=== PATIENT | female | born 1990 | race Native Hawaiian/Other Pacific Islander ===

== ENCOUNTER 2018-02-01 16:32 | Inpatient (IN) | payer OTHER ==
[2018-02-01] MEDS ORDERED: Sodium Chloride 0.9% 1,000 ML IV ONE (16:58)
[2018-02-01] MEDS ORDERED: Sodium Chloride 0.9% 1,000 ML ONE (17:06)
[2018-02-01 17:17] LABS: HCG,QUALITATIVE URINE POSITIVE (NEGATIVE)
--- NOTE | 2018-02-01 17:23 | C.PDOC ---
History Of Present Illness <Tono Mcdaniel - Last Filed: 02/01/18 20:35> <Alexsandra Weinberg - Last Filed: 02/05/18 14:35> 27 y/o female presents to ED with complaints of heavy bleeding with x1 episode of syncope 4 days ago and fever since last night. Patient states she had a termination 5 days ago and developed heavy bleeding that now has slowed down. Patient was sent by Dr. Schmidt for further evaluation. No other complaints at this time. (Alexsandra Weinberg) <Tono Mcdaniel - Last Filed: 02/01/18 20:35> History Per: Patient History/Exam Limitations: no limitations Onset/Duration Of Symptoms: Days Current Symptoms Are (Timing): Still Present <Alexsandra Weinberg - Last Filed: 02/05/18 14:35> Time Seen by Provider: 02/01/18 16:49 Chief Complaint (Nursing): Female Genitourinary Past Medical History Reviewed: Historical Data, Nursing Documentation, Vital Signs - Medical History PMH: No Chronic Diseases Surgical History: No Surg Hx Family History: States: No Known Family Hx - Social History Hx Alcohol Use: No Hx Substance Use: No <Alexsandra Weinberg - Last Filed: 02/05/18 14:35> Vital Signs: Last Vital Signs Temp 98 F 02/05/18 08:00 Pulse 80 02/05/18 08:00 Resp 20 02/05/18 08:00 BP 118/80 02/05/18 08:00 Pulse Ox 95 02/05/18 08:00 Review Of Systems Constitutional: Positive for: Fever. Negative for: Chills Gastrointestinal: Negative for: Nausea, Vomiting Genitourinary: Positive for: Vaginal Bleeding. Negative for: Dysuria Skin: Negative for: Rash <Alexsandra Weinberg - Last Filed: 02/05/18 14:35> Physical Exam - Physical Exam Appears: Non-toxic, No Acute Distress Skin: Warm, Dry, Pale Head: Atraumatic, Normacephalic Eye(s): bilateral: Normal Inspection Oral Mucosa: Moist Neck: Normal ROM, Supple Cardiovascular: Rhythm Regular Respiratory: Normal Breath Sounds, No Rales, No Rhonchi, No Wheezing Gastrointestinal/Abdominal: Soft, Tenderness (low abdominal), No Guarding, No Rebound Back: No CVA Tenderness Extremity: Normal ROM, Capillary Refill (<2 seconds) Neurological/Psych: Oriented x3, Normal Speech, Normal Cognition <Alexsandra Weinberg - Last Filed: 02/05/18 14:35> ED Course And Treatment - Laboratory Results Result Diagrams: 02/01/18 19:17 02/01/18 17:24 <JonasTono - Last Filed: 02/01/18 20:35> - Laboratory Results Result Diagrams: 02/04/18 08:45 02/03/18 06:41 O2 Sat by Pulse Oximetry: 100 (RA) Pulse Ox Interpretation: Normal <Alexsandra Weinberg - Last Filed: 02/05/18 14:35> Medical Decision Making <JonasAsh - Last Filed: 02/01/18 20:35> <Alexsandra Weinberg - Last Filed: 02/05/18 14:35> Medical Decision Making: Transvaginal US, Blood work ordered. IV fluids, Tylenol administered Progress; Dr Baldwin ob warehouse operations associate eval patient at bedside [address] Schmidt; she is requesting transfusion 2 units prbc, and hem/onc consult. discussed with Dr Padilla, she will come see patient. pt currently in ultrasound, will get consent for transusion on return to ed. ( Alexsandra Weinberg) Disposition <Tono Mcdaniel - Last Filed: 02/01/18 20:35> - Disposition Disposition Time: 20:00 <Alexsandra Weinberg - Last Filed: 02/05/18 14:35> - Disposition Disposition: HOSPITALIZED Condition: GOOD - Clinical Impression Clinical Impression: Anemia, Thrombocytopenia <JonasTono - Last Filed: 02/01/18 20:35> - PA / SENIOR TRIAL ATTORNEY / Resident Statement MD/DO has reviewed & agrees with the documentation as recorded. - Scribe Statement The provider has reviewed the documentation as recorded by the Scribe <Alexsandra Weinberg - Last Filed: 02/05/18 14:35> - Scribe Statement Radhika Liao All medical record entries made by the Scribe were at my direction and personally dictated by me. I have reviewed the chart and agree that the record accurately reflects my personal performance of the history, physical exam, medical decision making, and the department course for this patient. I have also personally directed, reviewed, and agree with the discharge instructions and disposition. (Alexsandra Weinberg) Addendum <Tono Mcdaniel - Last Filed: 02/01/18 20:35> <Alexsandra Weinberg - Last Filed: 02/05/18 14:35> Addendum: 02/01/18 20:21 Abnormal US results were discussed with [facility], suspicious for retained products of conception. Case discussed with Dr. Schmidt and Dr. Baldwin, who are both aware of ultrasound findings. (Tono Mcdaniel)
[2018-02-01 17:26] LABS: SQUAMOUS EPITHIAL 6 /hpf (0-5); URINE BILIRUBIN NEGATIVE (NEGATIVE); URINE BLOOD 3+ (NEGATIVE); URINE CLARITY Hazy (Clear); URINE COLOR Red (YELLOW); URINE GLUCOSE (UA) NORMAL (Normal); URINE LEUKOCYTE ESTERASE 2+ Leu/uL (Negative); URINE PROTEIN 2+ mg/dL (NEGATIVE); URINE UROBILINOGEN NORMAL mg/dL (0.2-1.0)
[2018-02-01] MEDS ORDERED: Piperacillin/Tazobact 3.375 gm 100 ML IVPB STA (17:28)
[2018-02-01] MEDS ORDERED: Piperacillin/Tazobact 3.375 gm 100 ML IVPB ONE (17:38)
[2018-02-01 17:42] LABS: ALB/GLOB RATIO 1.1 (1.0-2.1); ALBUMIN 3.7 g/dL (3.5-5.0); ALT/SGPT 15 U/L (9-52); AST/SGOT 20 U/L (14-36); BLOOD UREA NITROGEN 3 mg/dL (7-17); CALCIUM 8.4 mg/dl (8.6-10.4); GFR AFRICAN-AMERICAN > 60; GFR NON-AFRICAN AMERICAN > 60; INR 1.4; PROTHROMBIN TIME 16.1 SECONDS (9.7-12.2)
[2018-02-01 17:44] LABS: BASO % 0.5 % (0.0-2.0); EOS % 0.1 % (0.0-4.0); HEMOGLOBIN 7.2 g/dL (11.0-16.0); LYMPH % 9.1 % (20.0-40.0); MEAN CORPUSCULAR HEMOGLOBIN 20.2 pg (27.0-31.0); MEAN CORPUSCULAR HGB CONC 31.6 g/dL (33.0-37.0); MONO % 8.7 % (0.0-10.0); NEUT % 81.6 % (50.0-75.0); NRBC % 0.2 % (0.0-2.0); RBC 3.57 Mil/uL (3.80-5.20); RED CELL DISTRIBUTION WIDTH 16.6 % (11.5-14.5)
[2018-02-01 18:33] LABS: WHITE BLOOD COUNT 11.3 K/uL (4.8-10.8)
[2018-02-01 18:34] LABS: PLATELET COUNT 27 K/uL (130-400)
[2018-02-01 18:35] LABS: BASO # 0.1 K/uL (0.0-0.2); NEUT # 9.2 K/uL (1.8-7.0)
[2018-02-01 18:41] LABS: LYMPHOCYTE 9 % (20-40); MONOCYTE 5 % (0-10); NEUTROPHIL 86 % (50-75); TOTAL CELLS COUNTED 100
[2018-02-01 18:44] LABS: ANISOCYTOSIS SLIGHT; MICROCYTOSIS MODERATE; POIKILOCYTOSIS SLIGHT
[2018-02-01 18:45] LABS: HYPOCHROMIC SLIGHT
[2018-02-01 18:46] LABS: OVALOCYTES SLIGHT; PLATELET CLUMPS PRESENT
--- NOTE | 2018-02-01 19:07 | CP.PCM.HP ---
History of Present Illness - History of Present Illness History of Present Illness: This is a private patient of Dr. Schmidt 27 y.o. now , s/p medical . 01/27/18 took 1 pill {misoprostol 200 micrograms} in doctor's office. Heavy vaginal bleeding with passage of clots began Sunday 01/28 - onset 2000 hours through midnight. Had one event of loss of consciousness - was present; caught her - no trauma to head or any other body part. Patient took 4 more pills (misoprostol 800 micrograms x 1 dose) Wednesday morning. Vaginal bleeding was lean manufacturing specialist thereafter. Patient states felt well over the weekend; engaged in normal activities. Approximately 1700 hours, 01/31/18, noted to feel more tired/ weak; hands were a bit numb. Reports one episode of vomiting last night; took anti-emetic this morning. Denies fever , chills; not sexually active since process commenced , 01/27/18. Today, saw priv CAKE PRESS OPERATOR - referred to [facility], for evaluation due to pallor, and h/o syncope. In. E.D. temp 102.7 Fahrenheit. At time of my interaction, patient reported feeling better (IVFs infusing). BP 117/56; pulse 78 bpm; O2 sat = 100% on RA. P Ob: x 1, 02/15/2013, female, 2.685 Kg, Janay, no complications P CAKE PRESS OPERATOR: 13 x 30-35 x 3-5 PMH: denies PSH: denies NKDA Meds: none, except recently as described above. Soc Hx: denies tobacco, illicit drug or EtOH use. 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 Father alive 52 y.o. - both, no med issues Present on Admission - Present on Admission Any Indicators Present on Admission: No Review of Systems - Review of Systems All systems: reviewed and no additional remarkable complaints except - Constitutional Constitutional: Weakness, Other (loss of consciousness) - Gastrointestinal Gastrointestinal: Vomiting - Reproductive: Female Reproductive:Female: As Per HPI - Musculoskeletal Musculoskeletal: Numbness Past Patient History - Infectious Disease Hx of Infectious Diseases: None - Tetanus Immunizations Tetanus Immunization: Unknown - Past Medical History & Family History Past Medical History?: No Past Family History: Reviewed and not pertinent - Past Social History Smoking Status: Never Smoked Drugs: Denies Home Situation {Lives}: With Family - CARDIAC Hx Cardiac Disorders: No - PULMONARY Hx Respiratory Disorders: No - NEUROLOGICAL Hx Neurological Disorder: No - HEENT Hx HEENT Problems: No - RENAL Hx Chronic Kidney Disease: No - ENDOCRINE/METABOLIC Hx Endocrine Disorders: No - HEMATOLOGICAL/ONCOLOGICAL Hx Blood Disorders: No - INTEGUMENTARY Hx Dermatological Problems: No - MUSCULOSKELETAL/RHEUMATOLOGICAL Hx Musculoskeletal Disorders: No - GASTROINTESTINAL Hx Gastrointestinal Disorders: No - GENITOURINARY/GYNECOLOGICAL Hx Genitourinary Disorders: No LMP:: 12/06/17 : 2 Para: 1 Termination of : 1 - PSYCHIATRIC Hx Psychophysiologic Disorder: No Hx Substance Use: No - SURGICAL HISTORY Hx Surgeries: No - ANESTHESIA Hx Anesthesia: No Meds Allergies/Adverse Reactions: Allergies Allergy/AdvReac Type Severity Reaction Status Date / Time No Known Allergies Allergy Verified 02/01/18 16:45 Physical Exam - Constitutional Appears: Well, No Acute Distress - Head Exam Head Exam: ATRAUMATIC (Pale sclerae), NORMAL INSPECTION, NORMOCEPHALIC - ENT Exam ENT Exam: Mucous Membranes Moist - Neck Exam Neck exam: Positive for: Full Rom - Respiratory Exam Respiratory Exam: NORMAL BREATHING PATTERN - Cardiovascular Exam Cardiovascular Exam: Tachycardia, +S1, +S2 - GI/Abdominal Exam GI & Abdominal Exam: Normal Bowel Sounds (non tender), Soft - Exam Bimanual exam: NORMAL BIMANUAL EXAM (deferred - patient had been examined by PMD in office just prior to coming to E.D. - essentially unremarkable bimanual exam) - Extremities Exam Extremities exam: Positive for: full ROM, normal inspection, pedal pulses present - Back Exam Back exam: NORMAL INSPECTION - Neurological Exam Neurological exam: Alert, Oriented x3 - Psychiatric Exam Psychiatric exam: Normal Affect, Normal Mood - Skin Skin Exam: Dry, Intact, Pallor, Warm Results - Vital Signs Recent Vital Signs: Last Vital Signs Temp 102.7 F H 02/01/18 16:41 Pulse 127 H 02/01/18 16:41 Resp 22 02/01/18 16:41 BP 113/75 02/01/18 16:41 Pulse Ox 100 02/01/18 17:35 - Labs Result Diagrams: 02/01/18 17:24 02/01/18 17:24 Labs: Laboratory Results - last 24 hr 02/01/18 02/01/18 02/01/18 17:10 17:24 17:24 RBC 3.57 L Hgb 7.2 L Hct 22.8 L MCV 64.0 L MCH 20.2 L MCHC 31.6 L RDW 16.6 H Plt Count 27 L* MPV 11.0 Neut % (Auto) 81.6 H Lymph % (Auto) 9.1 L [place] % (Auto) 8.7 Eos % (Auto) 0.1 Baso % (Auto) 0.5 PT 16.1 H INR 1.4 APTT 29 Sodium Potassium Chloride Carbon Dioxide Anion Gap BUN Creatinine Est GFR ( Amer) Est GFR (Non-Af Amer) Random Glucose Calcium Total Bilirubin AST ALT Alkaline Phosphatase Total Protein Albumin Globulin Albumin/Globulin Ratio Urine Color Red Urine Clarity Hazy Urine pH 7.0 Ur Specific [place] 1.015 Urine Protein 2+ H Urine Glucose (UA) Normal Urine Ketones Negative Urine Blood 3+ H Urine Nitrate Negative Urine Bilirubin Negative Urine Urobilinogen Normal Ur Leukocyte Esterase 2+ H Urine WBC (Auto) 34 H Urine RBC (Auto) 4259 H Ur Squamous Epith Cells 6 H Urine HCG, Qual Positive 02/01/18 17:24 RBC Hgb Hct MCV MCH MCHC RDW Plt Count MPV Neut % (Auto) Lymph % (Auto) [place] % (Auto) Eos % (Auto) Baso % (Auto) PT INR APTT Sodium 131 L Potassium 3.2 L Chloride 98 Carbon Dioxide 17 L Anion Gap 18 BUN 3 L Creatinine 0.7 Est GFR ( Amer) > 60 Est GFR (Non-Af Amer) > 60 Random Glucose 123 H Calcium 8.4 L Total Bilirubin 1.1 AST 20 ALT 15 Alkaline Phosphatase 49 Total Protein 7.0 Albumin 3.7 Globulin 3.3 Albumin/Globulin Ratio 1.1 Urine Color Urine Clarity Urine pH Ur Specific [place] Urine Protein Urine Glucose (UA) Urine Ketones Urine Blood Urine Nitrate Urine Bilirubin Urine Urobilinogen Ur Leukocyte Esterase Urine WBC (Auto) Urine RBC (Auto) Ur Squamous Epith Cells Urine HCG, Qual Assessment & Plan - Assessment and Plan (Free Text) Assessment: CBC noted for H/H 7.2/22.8; platelets 27. Also, sodium 131, potassium 3.2. 27 y.o. , S/P medical - acute blood loss and symptomatic anemia. Incidental finding of thrombocytopenia. Mild hyponatremia and hypokalemia. All results to date discussed with Dr. Schmidt - patient to be admitted for blood transfusion, initiation of hematology evaluation for thrombocytopenia, antibiotic therapy for post abortal fever, and observation. This was discussed with patient and , who has been present during the entire encounter. Patient is hemodynamically stable. Plan: 1) Admit to [facility] 2) NPO 3) Hematology consult - called 4) manual count re: platelets 5) Bloodwork for anemia evaluation, prior to transfusion 6) Transfuse 2 units PRBCs 7) Zosyn 8) IVFs: NS with 20 mEq/L KCl 9) Blood and urine cultures - sent 10) Transvaginal ultrasound - Dr. Schmidt is aware - Date & Time Date: 02/01/18 Time: 18:30
[2018-02-01 19:35] LABS: IRON < 10 ug/dL (37-170)
[2018-02-01 19:44] LABS: TOTAL IRON BINDING CAPACITY 353 ug/dL (250-450)
[2018-02-01 19:45] LABS: % IRON SATURATION 2.8 (20-55)
[2018-02-01 20:10] LABS: FERRITIN 13.7 ng/mL
--- NOTE | 2018-02-01 20:53 | CP.PCM.CON ---
History of Present Illness - History of Present Illness History of Present Illness: 27 yo woman admitted via the ER with c/o nausea, dizziness, feeling weak, episode of LOC Wednesday. She took misoprostol in her private OBs office on ,followed by bleeding and passage of clots on Wednesday, took the second dose of the pill and had more bleeding with weakness, vomiting, followed by fever and chills. The patient was given an antiemetic, IVF and replacement of electrolytes and is currently feeling better. She is also scheduled to receive PRBC transfusions. PMHx- The patient has a history of one normal labor and delivery 5 years ago, denies any history of easy bruising or bleeding. Past Patient History - Infectious Disease Hx of Infectious Diseases: None - Tetanus Immunizations Tetanus Immunization: Unknown - Past Medical History & Family History Past Medical History?: No Past Family History: Reviewed and not pertinent - Past Social History Smoking Status: Never Smoked Drugs: Denies Home Situation {Lives}: With Family - CARDIAC Hx Cardiac Disorders: No - PULMONARY Hx Respiratory Disorders: No - NEUROLOGICAL Hx Neurological Disorder: No - HEENT Hx HEENT Problems: No - RENAL Hx Chronic Kidney Disease: No - ENDOCRINE/METABOLIC Hx Endocrine Disorders: No - HEMATOLOGICAL/ONCOLOGICAL Hx Blood Disorders: No - INTEGUMENTARY Hx Dermatological Problems: No - MUSCULOSKELETAL/RHEUMATOLOGICAL Hx Musculoskeletal Disorders: No - GASTROINTESTINAL Hx Gastrointestinal Disorders: No - GENITOURINARY/GYNECOLOGICAL Hx Genitourinary Disorders: No LMP:: 12/06/17 : 2 Para: 1 Termination of : 1 - PSYCHIATRIC Hx Psychophysiologic Disorder: No Hx Substance Use: No - SURGICAL HISTORY Hx Surgeries: No - ANESTHESIA Hx Anesthesia: No Meds Allergies/Adverse Reactions: Allergies Allergy/AdvReac Type Severity Reaction Status Date / Time No Known Allergies Allergy Verified 02/01/18 16:45 - Medications Medications: Current Medications Acetaminophen (Tylenol 325mg Tab) 650 mg PO Q6 PRN PRN Reason: Fever >100.4 F Piperacillin Sod/Tazobactam Sod (Zosyn 3.375 Gm Iv Premix) 3.375 gm in 50 mls @ 100 mls/hr IVPB Q6H [facility]ANI PRN Reason: Protocol Potassium Chloride 20 meq/ (Sodium Chloride) 1,010 mls @ 100 mls/hr IV .Q10H6M NANI Ondansetron HCl (Zofran Inj) 4 mg IVP Q8 PRN PRN Reason: Nausea/Vomiting Results - Vital Signs Recent Vital Signs: Last Vital Signs Temp 98.9 F 02/01/18 19:53 Pulse 115 H 02/01/18 19:53 Resp 20 02/01/18 19:53 BP 100/65 02/01/18 19:53 Pulse Ox 100 02/01/18 19:53 - Labs Result Diagrams: 02/01/18 19:17 02/01/18 17:24 Labs: Laboratory Results - last 24 hr 02/01/18 02/01/18 02/01/18 17:10 17:24 17:24 WBC 11.3 H RBC 3.57 L Hgb 7.2 L Hct 22.8 L MCV 64.0 L MCH 20.2 L MCHC 31.6 L RDW 16.6 H Plt Count 27 L* MPV 11.0 Neut % (Auto) 81.6 H Lymph % (Auto) 9.1 L Iron % (Auto) 8.7 Eos % (Auto) 0.1 Baso % (Auto) 0.5 Neut # (Auto) 9.2 H Lymph # (Auto) 1.0 Iron # (Auto) 1.0 H Eos # (Auto) 0.0 Baso # (Auto) 0.1 Neutrophils % (Manual) 86 H Lymphocytes % (Manual) 9 L Monocytes % (Manual) 5 Platelet Estimate TEST NOT PERFORMED Plt Clumps, EDTA Present Hypochromasia (manual) Slight Poikilocytosis (manual Slight Anisocytosis (manual) Slight Microcytosis (manual) Moderate Ovalocytes Slight Retic Count PT 16.1 H INR 1.4 APTT 29 Fibrinogen Sodium Potassium Chloride Carbon Dioxide Anion Gap BUN Creatinine Est GFR ( Amer) Est GFR (Non-Af Amer) Random Glucose Calcium Iron TIBC % Saturation Ferritin Total Bilirubin AST ALT Alkaline Phosphatase Lactate Dehydrogenase Total Protein Albumin Globulin Albumin/Globulin Ratio Vitamin B12 Beta HCG, Quant Urine Color Red Urine Clarity Hazy Urine pH 7.0 Ur Specific [place] 1.015 Urine Protein 2+ H Urine Glucose (UA) Normal Urine Ketones Negative Urine Blood 3+ H Urine Nitrate Negative Urine Bilirubin Negative Urine Urobilinogen Normal Ur Leukocyte Esterase 2+ H Urine WBC (Auto) 34 H Urine RBC (Auto) 4259 H Ur Squamous Epith Cells 6 H Urine HCG, Qual Positive Blood Type Blood Type Confirm Antibody Screen 02/01/18 02/01/18 02/01/18 17:24 17:24 19:17 WBC RBC Hgb Hct MCV MCH MCHC RDW Plt Count MPV Neut % (Auto) Lymph % (Auto) Iron % (Auto) Eos % (Auto) Baso % (Auto) Neut # (Auto) Lymph # (Auto) Iron # (Auto) Eos # (Auto) Baso # (Auto) Neutrophils % (Manual) Lymphocytes % (Manual) Monocytes % (Manual) Platelet Estimate Plt Clumps, EDTA Hypochromasia (manual) Poikilocytosis (manual Anisocytosis (manual) Microcytosis (manual) Ovalocytes Retic Count PT INR APTT Fibrinogen 396 Sodium 131 L Potassium 3.2 L Chloride 98 Carbon Dioxide 17 L Anion Gap 18 BUN 3 L Creatinine 0.7 Est GFR ( Amer) > 60 Est GFR (Non-Af Amer) > 60 Random Glucose 123 H Calcium 8.4 L Iron TIBC % Saturation Ferritin Total Bilirubin 1.1 AST 20 ALT 15 Alkaline Phosphatase 49 Lactate Dehydrogenase Total Protein 7.0 Albumin 3.7 Globulin 3.3 Albumin/Globulin Ratio 1.1 Vitamin B12 Beta HCG, Quant 55956.00 Urine Color Urine Clarity Urine pH Ur Specific [place] Urine Protein Urine Glucose (UA) Urine Ketones Urine Blood Urine Nitrate Urine Bilirubin Urine Urobilinogen Ur Leukocyte Esterase Urine WBC (Auto) Urine RBC (Auto) Ur Squamous Epith Cells Urine HCG, Qual Blood Type O POSITIVE Blood Type Confirm O POSITIVE Antibody Screen Negative 02/01/18 02/01/18 02/01/18 19:17 19:17 19:17 WBC RBC Hgb Hct MCV MCH MCHC RDW Plt Count MPV Neut % (Auto) Lymph % (Auto) Iron % (Auto) Eos % (Auto) Baso % (Auto) Neut # (Auto) Lymph # (Auto) Iron # (Auto) Eos # (Auto) Baso # (Auto) Neutrophils % (Manual) Lymphocytes % (Manual) Monocytes % (Manual) Platelet Estimate Plt Clumps, EDTA Hypochromasia (manual) Poikilocytosis (manual Anisocytosis (manual) Microcytosis (manual) Ovalocytes Retic Count 2.1 H PT INR APTT Fibrinogen Sodium Potassium Chloride Carbon Dioxide Anion Gap BUN Creatinine Est GFR ( Amer) Est GFR (Non-Af Amer) Random Glucose Calcium Iron < 10 L TIBC 353 % Saturation 2.8 L Ferritin 13.7 Total Bilirubin AST ALT Alkaline Phosphatase Lactate Dehydrogenase 369 Total Protein Albumin Globulin Albumin/Globulin Ratio Vitamin B12 213 L Beta HCG, Quant Urine Color Urine Clarity Urine pH Ur Specific [place] Urine Protein Urine Glucose (UA) Urine Ketones Urine Blood Urine Nitrate Urine Bilirubin Urine Urobilinogen Ur Leukocyte Esterase Urine WBC (Auto) Urine RBC (Auto) Ur Squamous Epith Cells Urine HCG, Qual Blood Type Blood Type Confirm Antibody Screen 02/01/18 19:17 WBC RBC Hgb Hct MCV MCH MCHC RDW Plt Count 138 D MPV Neut % (Auto) Lymph % (Auto) Iron % (Auto) Eos % (Auto) Baso % (Auto) Neut # (Auto) Lymph # (Auto) Iron # (Auto) Eos # (Auto) Baso # (Auto) Neutrophils % (Manual) Lymphocytes % (Manual) Monocytes % (Manual) Platelet Estimate Plt Clumps, EDTA Hypochromasia (manual) Poikilocytosis (manual Anisocytosis (manual) Microcytosis (manual) Ovalocytes Retic Count PT INR APTT Fibrinogen Sodium Potassium Chloride Carbon Dioxide Anion Gap BUN Creatinine Est GFR ( Amer) Est GFR (Non-Af Amer) Random Glucose Calcium Iron TIBC % Saturation Ferritin Total Bilirubin AST ALT Alkaline Phosphatase Lactate Dehydrogenase Total Protein Albumin Globulin Albumin/Globulin Ratio Vitamin B12 Beta HCG, Quant Urine Color Urine Clarity Urine pH Ur Specific [place] Urine Protein Urine Glucose (UA) Urine Ketones Urine Blood Urine Nitrate Urine Bilirubin Urine Urobilinogen Ur Leukocyte Esterase Urine WBC (Auto) Urine RBC (Auto) Ur Squamous Epith Cells Urine HCG, Qual Blood Type Blood Type Confirm Antibody Screen Assessment & Plan (1) Anemia Assessment and Plan: Severe symptomatic Iron deficiency anemia, most likely acute on chronic. Agree with PRBC transfusion, no evidence of DIC/TTP. Have ordered iron studies and B12 l;evels. Above discussed with patient and , will start PO ferrous gluconate, next week and follow up for CBC check as outpatient. Thrombocytopenia, no evidence of DIC/TTP, evidence of platelet clumping on peripheral smear, no intervention at this time Status: Acute
[2018-02-01] MEDS: Piperacill/Tazo 3.375gm in Dex 3.375 GM/50 ML BAG IVPB SCH (22:00)
[2018-02-02 01:44] LABS: SQUAMOUS EPITHIAL 1 /hpf (0-5); URINE BACTERIA RARE (<OCC); URINE BILIRUBIN NEGATIVE (NEGATIVE); URINE BLOOD 3+ (NEGATIVE); URINE CLARITY Hazy (Clear); URINE COLOR Red (YELLOW); URINE GLUCOSE (UA) NORMAL (Normal); URINE LEUKOCYTE ESTERASE 3+ Leu/uL (Negative); URINE PROTEIN 1+ mg/dL (NEGATIVE); URINE UROBILINOGEN NORMAL mg/dL (0.2-1.0)
[2018-02-02] MEDS: Piperacill/Tazo 3.375gm in Dex 3.375 GM/50 ML BAG IVPB SCH ×4 (03:11→21:33)
[2018-02-02 06:51] LABS: BASO % 0.3 % (0.0-2.0); LYMPH # 0.5 K/uL (1.0-4.3); LYMPH % 7.6 % (20.0-40.0); MEAN CELL VOLUME 64.5 fL (81.0-99.0); MEAN CORPUSCULAR HGB CONC 32.6 g/dL (33.0-37.0); MEAN PLATELET VOLUME 15.8 fL (7.2-11.7); MONO # 0.5 K/uL (0.0-0.8); MONO % 8.2 % (0.0-10.0); NEUT # 5.1 K/uL (1.8-7.0); NEUT % 83.9 % (50.0-75.0); NRBC % 0.1 % (0.0-2.0); PLATELET COUNT 102 K/uL (130-400); RED CELL DISTRIBUTION WIDTH 17.3 % (11.5-14.5); WHITE BLOOD COUNT 6.1 K/uL (4.8-10.8)
[2018-02-02 06:58] LABS: HEMOGLOBIN 6.3 g/dL (11.0-16.0)
[2018-02-02 07:25] LABS: ALB/GLOB RATIO 0.9 (1.0-2.1); ALBUMIN 2.5 g/dL (3.5-5.0); ALT/SGPT 22 U/L (9-52); AST/SGOT 23 U/L (14-36); BLOOD UREA NITROGEN 3 mg/dL (7-17); CALCIUM 7.3 mg/dl (8.6-10.4); GFR AFRICAN-AMERICAN > 60; GFR NON-AFRICAN AMERICAN > 60
--- NOTE | 2018-02-02 08:04 | US ---
HISTORY: s/p top, heavy bleeding and fever COMPARISON: None available. TECHNIQUE: Grayscale, color Doppler and spectral evaluation the pelvis performed transabdominally and transvaginally FINDINGS: UTERUS: Measures 14.6 x 6.9 x 10.6 cm. Anteverted. Normal in size and appearance. Large heterogeneously hypoechoic hypervascular mass measuring 11.2 x 6.7 x 8.4 cm, possibly fibroid. ENDOMETRIUM: Measures 15 mm in diameter. Focal hypervascularity at endometrial/myometrial junction. CERVIX: No cervical abnormality identified. RIGHT OVARY: Measures 3.2 x 2.2 x 3.6 cm. No solid mass. Normal flow. LEFT OVARY: Measures 3.5 x 1.8 x 2.8 cm. No solid mass. Normal flow. FREE FLUID: No significant free fluid noted. OTHER FINDINGS: None. IMPRESSION: Prominent endometrium with focal hypervascularity may represent a crit retained products of conception. Large heterogeneously hypoechoic hypervascular mass measuring approximately 11.2 cm is nonspecific, but may represent a fibroid.
[2018-02-02 08:19] LABS: ANISOCYTOSIS SLIGHT; BANDS 5 % (0-2); LYMPHOCYTE 10 % (20-40); MONOCYTE 4 % (0-10); NEUTROPHIL 81 % (50-75); TOTAL CELLS COUNTED 100
[2018-02-02 08:20] LABS: HYPOCHROMIC MODERATE; OVALOCYTES SLIGHT
[2018-02-02 08:21] LABS: POIKILOCYTOSIS SLIGHT; TEARDROP CELLS SLIGHT
[2018-02-02 08:22] LABS: LARGE PLATELETS PRESENT; PLATELET CLUMPS PRESENT; PLATELET ESTIMATE SLIGHTLY DECREASED (NORMAL)
--- NOTE | 2018-02-02 10:07 | CP.PCM.PN ---
Subjective - Date & Time of Evaluation Date of Evaluation: 02/02/18 Time of Evaluation: 10:00 - Subjective Subjective: pt was seen at bed side. feel better.min bleeding, no pain . no gidiness.feels good abd soft,non tender ext no edema,no calf ten blood culture group b strep h/h 6.3 Objective - Vital Signs/Intake and Output Vital Signs (last 24 hours): Temp Pulse Resp BP Pulse Ox 97.6 F 116 H 20 104/69 96 02/02/18 08:33 02/02/18 08:33 02/02/18 08:33 02/02/18 08:33 02/02/18 08:33 Intake and Output: 02/02/18 02/02/18 06:59 18:59 Intake Total 1160 Balance 1160 - Medications Medications: Current Medications Acetaminophen (Tylenol 325mg Tab) 650 mg PO Q4 [facility] Last Admin: 02/02/18 09:38 Dose: 650 mg Piperacillin Sod/Tazobactam Sod (Zosyn 3.375 Gm Iv Premix) 3.375 gm in 50 mls @ 100 mls/hr IVPB Q6H [facility] PRN Reason: Protocol Last Admin: 02/02/18 09:24 Dose: 100 mls/hr Potassium Chloride 20 meq/ (Sodium Chloride) 1,010 mls @ 100 mls/hr IV .Q10H6M [facility] Last Admin: 02/02/18 08:52 Dose: Not Given Ondansetron HCl (Zofran Inj) 4 mg IVP Q8 PRN PRN Reason: Nausea/Vomiting - Labs Labs: 02/02/18 06:40 02/02/18 06:40 PT 16.1 SECONDS (9.7-12.2) H 02/01/18 17:24 INR 1.4 02/01/18 17:24 APTT 29 SECONDS (21-34) 02/01/18 17:24 - GI/Abdominal Exam GI & Abdominal Exam: Soft, Normal Bowel Sounds Assessment and Plan - Assessment and Plan (Free Text) Assessment: 27 yr with acute blood loss anemia/enodemetritis/fever Plan: plan Transfuse 2 unit prbc cont antibiotcs kdure po tylenol cullture senstitivity pending ID consult called cont close observation
--- NOTE | 2018-02-02 11:38 | CP.PCM.CON ---
History of Present Illness - History of Present Illness History of Present Illness: infectious disease consult; Patient seen and chart reviewed Case discussed with , Infectious disease consult dictated; Dictation #[id number] See reports. Past Patient History - Infectious Disease Hx of Infectious Diseases: None - Tetanus Immunizations Tetanus Immunization: Unknown - Past Medical History & Family History Past Medical History?: No Past Family History: Reviewed and not pertinent - Past Social History Smoking Status: Never Smoked - CARDIAC Hx Cardiac Disorders: No - PULMONARY Hx Respiratory Disorders: No - NEUROLOGICAL Hx Neurological Disorder: No - HEENT Hx HEENT Problems: No - RENAL Hx Chronic Kidney Disease: No - ENDOCRINE/METABOLIC Hx Endocrine Disorders: No - HEMATOLOGICAL/ONCOLOGICAL Hx Blood Disorders: No - INTEGUMENTARY Hx Dermatological Problems: No - MUSCULOSKELETAL/RHEUMATOLOGICAL Hx Musculoskeletal Disorders: No - GASTROINTESTINAL Hx Gastrointestinal Disorders: No - GENITOURINARY/GYNECOLOGICAL Hx Genitourinary Disorders: No LMP:: 12/06/17 : 2 Para: 1 Termination of : 1 - PSYCHIATRIC Hx Psychophysiologic Disorder: No Hx Substance Use: No - SURGICAL HISTORY Hx Surgeries: No Other/Comment: S/p medical - ANESTHESIA Hx Anesthesia: Yes Hx Anesthesia Reactions: No Meds Allergies/Adverse Reactions: Allergies Allergy/AdvReac Type Severity Reaction Status Date / Time No Known Allergies Allergy Verified 02/01/18 16:45 - Medications Medications: Current Medications Acetaminophen (Tylenol 325mg Tab) 650 mg PO Q4 [facility] Last Admin: 02/02/18 09:38 Dose: 650 mg Piperacillin Sod/Tazobactam Sod (Zosyn 3.375 Gm Iv Premix) 3.375 gm in 50 mls @ 100 mls/hr IVPB Q6H [facility] PRN Reason: Protocol Last Admin: 02/02/18 09:24 Dose: 100 mls/hr Potassium Chloride 20 meq/ (Sodium Chloride) 1,010 mls @ 100 mls/hr IV .Q10H6M [facility] Last Admin: 02/02/18 08:52 Dose: Not Given Ondansetron HCl (Zofran Inj) 4 mg IVP Q8 PRN PRN Reason: Nausea/Vomiting Results - Vital Signs Recent Vital Signs: Last Vital Signs Temp 98.0 F 02/02/18 11:15 Pulse 102 H 02/02/18 11:15 Resp 20 02/02/18 11:15 BP 108/66 02/02/18 11:15 Pulse Ox 96 02/02/18 08:33 - Labs Result Diagrams: 02/02/18 06:40 02/02/18 06:40 Labs: Laboratory Results - last 24 hr 02/01/18 02/01/18 02/01/18 17:10 17:24 17:24 WBC 11.3 H RBC 3.57 L Hgb 7.2 L Hct 22.8 L MCV 64.0 L MCH 20.2 L MCHC 31.6 L RDW 16.6 H Plt Count 27 L* MPV 11.0 Neut % (Auto) 81.6 H Lymph % (Auto) 9.1 L [place] % (Auto) 8.7 Eos % (Auto) 0.1 Baso % (Auto) 0.5 Neut # (Auto) 9.2 H Lymph # (Auto) 1.0 [place] # (Auto) 1.0 H Eos # (Auto) 0.0 Baso # (Auto) 0.1 Neutrophils % (Manual) 86 H Band Neutrophils % Lymphocytes % (Manual) 9 L Monocytes % (Manual) 5 Platelet Estimate TEST NOT PERFORMED Plt Clumps, EDTA Present Large Platelets Hypochromasia (manual) Slight Poikilocytosis (manual Slight Anisocytosis (manual) Slight Microcytosis (manual) Moderate Macrocytosis (manual) Tear Drop Cells Ovalocytes Slight Retic Count PT 16.1 H INR 1.4 APTT 29 Fibrinogen Sodium Potassium Chloride Carbon Dioxide Anion Gap BUN Creatinine Est GFR ( Amer) Est GFR (Non-Af Amer) Random Glucose Calcium Iron TIBC % Saturation Ferritin Total Bilirubin AST ALT Alkaline Phosphatase Lactate Dehydrogenase Total Protein Albumin Globulin Albumin/Globulin Ratio Vitamin B12 Beta HCG, Quant Urine Color Red Urine Clarity Hazy Urine pH 7.0 Ur Specific [place] 1.015 Urine Protein 2+ H Urine Glucose (UA) Normal Urine Ketones Negative Urine Blood 3+ H Urine Nitrate Negative Urine Bilirubin Negative Urine Urobilinogen Normal Ur Leukocyte Esterase 2+ H Urine WBC (Auto) 34 H Urine RBC (Auto) 4259 H Ur Squamous Epith Cells 6 H Urine Bacteria Urine HCG, Qual Positive Blood Type Blood Type Confirm Antibody Screen Tx React Basic Work-up Clerical Work Check Pre-Trans Blood Type Pre-Trans Vis Hemolysis Pre-Tx Ab Screen (Gel) Post-Trans Blood Type Post-Tx Visible Hemolys Post-Tx Ab Screen (Gel) Post-Trans PB Poly Pathologist Comment [facility] 02/01/18 02/01/18 02/01/18 17:24 17:24 19:17 WBC RBC Hgb Hct MCV MCH MCHC RDW Plt Count MPV Neut % (Auto) Lymph % (Auto) [place] % (Auto) Eos % (Auto) Baso % (Auto) Neut # (Auto) Lymph # (Auto) [place] # (Auto) Eos # (Auto) Baso # (Auto) Neutrophils % (Manual) Band Neutrophils % Lymphocytes % (Manual) Monocytes % (Manual) Platelet Estimate Plt Clumps, EDTA Large Platelets Hypochromasia (manual) Poikilocytosis (manual Anisocytosis (manual) Microcytosis (manual) Macrocytosis (manual) Tear Drop Cells Ovalocytes Retic Count PT INR APTT Fibrinogen 396 Sodium 131 L Potassium 3.2 L Chloride 98 Carbon Dioxide 17 L Anion Gap 18 BUN 3 L Creatinine 0.7 Est GFR ( Amer) > 60 Est GFR (Non-Af Amer) > 60 Random Glucose 123 H Calcium 8.4 L Iron TIBC % Saturation Ferritin Total Bilirubin 1.1 AST 20 ALT 15 Alkaline Phosphatase 49 Lactate Dehydrogenase Total Protein 7.0 Albumin 3.7 Globulin 3.3 Albumin/Globulin Ratio 1.1 Vitamin B12 Beta HCG, Quant 91345.00 Urine Color Urine Clarity Urine pH Ur Specific [place] Urine Protein Urine Glucose (UA) Urine Ketones Urine Blood Urine Nitrate Urine Bilirubin Urine Urobilinogen Ur Leukocyte Esterase Urine WBC (Auto) Urine RBC (Auto) Ur Squamous Epith Cells Urine Bacteria Urine HCG, Qual Blood Type O POSITIVE Blood Type Confirm O POSITIVE Antibody Screen Negative Tx React Basic Work-up Clerical Work Check Pre-Trans Blood Type Pre-Trans Vis Hemolysis Pre-Tx Ab Screen (Gel) Post-Trans Blood Type Post-Tx Visible Hemolys Post-Tx Ab Screen (Gel) Post-Trans PB Poly Pathologist Comment [facility] 02/01/18 02/01/18 02/01/18 19:17 19:17 19:17 WBC RBC Hgb Hct MCV MCH MCHC RDW Plt Count MPV Neut % (Auto) Lymph % (Auto) [place] % (Auto) Eos % (Auto) Baso % (Auto) Neut # (Auto) Lymph # (Auto) [place] # (Auto) Eos # (Auto) Baso # (Auto) Neutrophils % (Manual) Band Neutrophils % Lymphocytes % (Manual) Monocytes % (Manual) Platelet Estimate Plt Clumps, EDTA Large Platelets Hypochromasia (manual) Poikilocytosis (manual Anisocytosis (manual) Microcytosis (manual) Macrocytosis (manual) Tear Drop Cells Ovalocytes Retic Count 2.1 H PT INR APTT Fibrinogen Sodium Potassium Chloride Carbon Dioxide Anion Gap BUN Creatinine Est GFR ( Amer) Est GFR (Non-Af Amer) Random Glucose Calcium Iron < 10 L TIBC 353 % Saturation 2.8 L Ferritin 13.7 Total Bilirubin AST ALT Alkaline Phosphatase Lactate Dehydrogenase 369 Total Protein Albumin Globulin Albumin/Globulin Ratio Vitamin B12 213 L Beta HCG, Quant Urine Color Urine Clarity Urine pH Ur Specific [place] Urine Protein Urine Glucose (UA) Urine Ketones Urine Blood Urine Nitrate Urine Bilirubin Urine Urobilinogen Ur Leukocyte Esterase Urine WBC (Auto) Urine RBC (Auto) Ur Squamous Epith Cells Urine Bacteria Urine HCG, Qual Blood Type Blood Type Confirm Antibody Screen Tx React Basic Work-up Clerical Work Check Pre-Trans Blood Type Pre-Trans Vis Hemolysis Pre-Tx Ab Screen (Gel) Post-Trans Blood Type Post-Tx Visible Hemolys Post-Tx Ab Screen (Gel) Post-Trans PB Poly Pathologist Comment [facility] 02/01/18 02/02/18 02/02/18 19:17 00:02 00:19 WBC RBC Hgb Hct MCV MCH MCHC RDW Plt Count 138 D MPV Neut % (Auto) Lymph % (Auto) [place] % (Auto) Eos % (Auto) Baso % (Auto) Neut # (Auto) Lymph # (Auto) [place] # (Auto) Eos # (Auto) Baso # (Auto) Neutrophils % (Manual) Band Neutrophils % Lymphocytes % (Manual) Monocytes % (Manual) Platelet Estimate Plt Clumps, EDTA Large Platelets Hypochromasia (manual) Poikilocytosis (manual Anisocytosis (manual) Microcytosis (manual) Macrocytosis (manual) Tear Drop Cells Ovalocytes Retic Count PT INR APTT Fibrinogen Sodium Potassium Chloride Carbon Dioxide Anion Gap BUN Creatinine Est GFR ( Amer) Est GFR (Non-Af Amer) Random Glucose Calcium Iron TIBC % Saturation Ferritin Total Bilirubin 1.1 AST ALT Alkaline Phosphatase Lactate Dehydrogenase Total Protein Albumin Globulin Albumin/Globulin Ratio Vitamin B12 Beta HCG, Quant Urine Color Red Urine Clarity Hazy Urine pH 6.0 Ur Specific [place] 1.008 Urine Protein 1+ H Urine Glucose (UA) Normal Urine Ketones Negative Urine Blood 3+ H Urine Nitrate Negative Urine Bilirubin Negative Urine Urobilinogen Normal Ur Leukocyte Esterase 3+ H Urine WBC (Auto) 418 H Urine RBC (Auto) 141 H Ur Squamous Epith Cells 1 Urine Bacteria Rare Urine HCG, Qual Blood Type Blood Type Confirm Antibody Screen Tx React Basic Work-up Clerical Work Check Pre-Trans Blood Type Pre-Trans Vis Hemolysis Pre-Tx Ab Screen (Gel) Post-Trans Blood Type Post-Tx Visible Hemolys Post-Tx Ab Screen (Gel) Post-Trans PB Poly Pathologist Comment [facility] 02/02/18 02/02/18 02/02/18 00:19 06:40 06:40 WBC 6.1 RBC 3.00 L Hgb 6.3 L* Hct 19.3 L MCV 64.5 L MCH 21.0 L MCHC 32.6 L RDW 17.3 H Plt Count 102 L D MPV 15.8 H Neut % (Auto) 83.9 H Lymph % (Auto) 7.6 L [place] % (Auto) 8.2 Eos % (Auto) 0.0 Baso % (Auto) 0.3 Neut # (Auto) 5.1 Lymph # (Auto) 0.5 L [place] # (Auto) 0.5 Eos # (Auto) 0.0 Baso # (Auto) 0.0 Neutrophils % (Manual) 81 H Band Neutrophils % 5 H Lymphocytes % (Manual) 10 L Monocytes % (Manual) 4 Platelet Estimate Slightly decreased L Plt Clumps, EDTA Present Large Platelets Present Hypochromasia (manual) Moderate Poikilocytosis (manual Slight Anisocytosis (manual) Slight Microcytosis (manual) Macrocytosis (manual) Moderate Tear Drop Cells Slight Ovalocytes Slight Retic Count PT INR APTT Fibrinogen Sodium 134 Potassium 3.1 L Chloride 105 Carbon Dioxide 18 L Anion Gap 14 BUN 3 L Creatinine 0.6 L Est GFR ( Amer) > 60 Est GFR (Non-Af Amer) > 60 Random Glucose 116 H Calcium 7.3 L Iron TIBC % Saturation Ferritin Total Bilirubin 1.3 AST 23 ALT 22 Alkaline Phosphatase 40 Lactate Dehydrogenase Total Protein 5.2 L Albumin 2.5 L D Globulin 2.7 Albumin/Globulin Ratio 0.9 L Vitamin B12 Beta HCG, Quant Urine Color Urine Clarity Urine pH Ur Specific [place] Urine Protein Urine Glucose (UA) Urine Ketones Urine Blood Urine Nitrate Urine Bilirubin Urine Urobilinogen Ur Leukocyte Esterase Urine WBC (Auto) Urine RBC (Auto) Ur Squamous Epith Cells Urine Bacteria Urine HCG, Qual Blood Type Blood Type Confirm Antibody Screen Tx React Basic Work-up Compatible Clerical Work Check No discrepancy Pre-Trans Blood Type O POSITIVE Pre-Trans Vis Hemolysis No hemolysis Pre-Tx Ab Screen (Gel) Negative Post-Trans Blood Type O POSITIVE Post-Tx Visible Hemolys No hemolysis Post-Tx Ab Screen (Gel) Negative Post-Trans PB Poly Negative Pathologist Comment [facility]
[2018-02-02] MEDS: Vancomycin 1 gm/NS 200 ml 1 GM/200 ML BAG IVPB SCH (14:56)
[2018-02-02] MEDS: Potassium Chloride 20 mEq ER Tab PO SCH ×2 (15:35→19:55)
[2018-02-03] MEDS: Piperacill/Tazo 3.375gm in Dex 3.375 GM/50 ML BAG IVPB SCH ×2 (03:04→11:36)
--- NOTE | 2018-02-03 06:40 | CP.PCM.PN ---
Subjective - Date & Time of Evaluation Date of Evaluation: 02/03/18 Time of Evaluation: 06:40 - Subjective Subjective: pt was seen at bd side. feels good, no fever, no pain, toleraing deit, voiding, feels good. abd soft,non tendeer ext no edema, o calf ten s/p 2 unit prbc last tem 24 hr ago culture gram + cocci pending sensitivity s/p ID consult Objective - Vital Signs/Intake and Output Vital Signs (last 24 hours): Temp Pulse Resp BP Pulse Ox 98.6 F 89 18 101/69 98 02/03/18 00:10 02/03/18 00:10 02/03/18 00:10 02/03/18 00:10 02/03/18 00:10 Intake and Output: 02/02/18 02/03/18 18:59 06:59 Intake Total 1650 1535 Balance 1650 1535 - Medications Medications: Current Medications Acetaminophen (Tylenol 325mg Tab) 650 mg PO Q6 PRN PRN Reason: Fever >100.4 F Last Admin: 02/02/18 20:50 Dose: 650 mg Cyanocobalamin (Vitamin B12 1000 Mcg/Ml Inj) 1,000 mcg SC DAILY [facility] Last Admin: 02/02/18 14:56 Dose: 1,000 mcg Ferric Sodium Gluconate Complex (Ferrlecit) 125 mg IVPB DAILY [facility] Stop: 02/11/18 10:01 Folic Acid (Folic Acid) 1 mg PO DAILY [facility] Last Admin: 02/02/18 14:55 Dose: 1 mg Piperacillin Sod/Tazobactam Sod (Zosyn 3.375 Gm Iv Premix) 3.375 gm in 50 mls @ 100 mls/hr IVPB Q6H [facility] PRN Reason: Protocol Last Admin: 02/03/18 03:04 Dose: 100 mls/hr Potassium Chloride 20 meq/ (Sodium Chloride) 1,010 mls @ 100 mls/hr IV .Q10H6M [facility] Last Admin: 02/03/18 03:05 Dose: Not Given Vancomycin/Sodium Chloride (Vancomycin 1 Gm/Ns 200 Ml) 1 gm in 200 mls @ 133 mls/hr IVPB Q24H [facility] PRN Reason: Protocol Stop: 02/07/18 14:16 Last Admin: 02/02/18 14:56 Dose: 133 mls/hr Ondansetron HCl (Zofran Inj) 4 mg IVP Q8 PRN PRN Reason: Nausea/Vomiting - Labs Labs: 02/02/18 06:40 02/02/18 06:40 PT 16.1 SECONDS (9.7-12.2) H 02/01/18 17:24 INR 1.4 02/01/18 17:24 APTT 29 SECONDS (21-34) 02/01/18 17:24 - GI/Abdominal Exam GI & Abdominal Exam: Soft, Normal Bowel Sounds Assessment and Plan - Assessment and Plan (Free Text) Assessment: 27 yr s/p ta with endometritis/acute blood lss anemia Plan: plan possible dc after culture sensitivity agumentin rx ferrous sulfate cont iv abxs f/u cbc/cmp pt understan and agrees
[2018-02-03 06:51] LABS: BASO % 0.4 % (0.0-2.0); EOS # 0.1 K/uL (0.0-0.7); EOS % 1.5 % (0.0-4.0); HEMOGLOBIN 10.3 g/dL (11.0-16.0); LYMPH # 0.7 K/uL (1.0-4.3); LYMPH % 12.7 % (20.0-40.0); MEAN CELL VOLUME 70.6 fL (81.0-99.0); MEAN CORPUSCULAR HEMOGLOBIN 23.8 pg (27.0-31.0); MEAN CORPUSCULAR HGB CONC 33.8 g/dL (33.0-37.0); MONO # 0.6 K/uL (0.0-0.8); MONO % 11.3 % (0.0-10.0); NEUT # 4.1 K/uL (1.8-7.0); NEUT % 74.1 % (50.0-75.0); NRBC % 0.2 % (0.0-2.0); RBC 4.34 Mil/uL (3.80-5.20); RED CELL DISTRIBUTION WIDTH 22.1 % (11.5-14.5); WHITE BLOOD COUNT 5.5 K/uL (4.8-10.8)
[2018-02-03 07:27] LABS: ALB/GLOB RATIO 0.9 (1.0-2.1); ALBUMIN 2.6 g/dL (3.5-5.0); ALT/SGPT 27 U/L (9-52); AST/SGOT 31 U/L (14-36); BLOOD UREA NITROGEN 3 mg/dL (7-17); CALCIUM 8.3 mg/dl (8.6-10.4); GFR AFRICAN-AMERICAN > 60; GFR NON-AFRICAN AMERICAN > 60
[2018-02-03 08:02] VITALS: RESP 20
--- NOTE | 2018-02-03 11:05 | CON ---
DATE: INFECTIOUS DISEASE CONSULTATION REQUESTED BY: Rd Schmidt MD, hot tamale worker for Infectious Disease. REASON FOR CONSULTATION: Elevated temperatures, post medical . HISTORY OF PRESENT ILLNESS: The patient is a 27-year-old pleasant woman who was admitted by the emergency room on 02/01/2018 with complaints of nausea, vomiting, and dizziness. The patient also states she was feeling very weak and had one episode of loss of consciousness on Wednesday. The patient states she took misoprostol in her private MD's DIRECTOR OF CONSTRUCTION's office on , followed by bleeding and passage of clots on Wednesday. She took the second dose of the pill and had more bleeding and with increased weakness, vomiting, followed by fever and chills. The patient was given an antiemetic, IV fluids, and replacement of electrolytes, and currently feeling better. The patient's hemoglobin today dropped to 6.3 with hematocrit of 19.3 and platelets to 102. The patient presently not having much bleeding as stated by her and is feeling slightly better. Infectious Disease consultation requested because of hyperpyrexia and persistent fevers in spite of starting IV Zosyn 3.375 every 6 hourly, which the patient presently is getting. Also reported blood cultures are positive from 02/01/2018 for Gram-positive cocci in chains, negative for enterococci by PNA-FISH, probably streptococci. Also urine cultures are reported more than 100,000 colonies per mL of Gram-positive cocci identification is still pending. The patient denies any shortness of breath or cough. Denies any leg pain. Presently blood pressure is 108/65, with a T-max of 103. The patient denies any sore throat, cough, or any ear, nose infection recent or past. The patient has a history of one normal delivery and the child is about 5 years old. Denies any previous history of abortions as reported, and also the patient denies any easy bruising or bleeding. PAST MEDICAL HISTORY: Denies any previous such episodes. The patient even denies history of hemorrhage during the first , which was a normal vaginal delivery. SOCIAL HISTORY: The patient denies smoking, drinking, or alcohol abuse. She lives with the family and her . Denies any history of drug abuse. FAMILY HISTORY: Unremarkable. Both parents are alive and healthy. IMMUNIZATIONS: The patient is not sure of immunizations. She is in [facility] for the past 6 months to a year as stated by her. REVIEW OF SYSTEMS: RESPIRATORY: Denies any cough or expectoration. CARDIOVASCULAR SYSTEM: Denies any chest pain or palpitations. GI: Complained of some lower abdominal pain, but presently easing off. ASSISTANT COUNSEL: No headaches, no seizures, except for nausea and vomiting, which has presently been controlled by antiemetics. SADDLE LINING STITCHER: As reported above. History of vaginal bleeding. Rest of the review of systems is unremarkable. MEDICATIONS: As per chart review, the patient presently on acetaminophen p.r.n. 650 mg p.o. every 6 hourly, Zosyn 3.375 every 6 hourly, potassium supplement, and Zofran injections p.r.n. 4 mg every 8 hourly for nausea and vomiting. PHYSICAL EXAMINATION GENERAL: The patient is a petite 4 feet 10 inches, 110 pounds lady. VITAL SIGNS: T-max of 103, blood pressure 108/65, respirations 20, pulse ox 100% on room air. HEENT: Pupils equal and reactive to light and accommodation. Extraocular movements full. Fundus negative. Sclerae nonicteric. Conjunctivae pale. JVP not elevated. NECK: Appears to be supple. LUNGS: Fair air entry. CARDIOVASCULAR SYSTEM: S1, S2, sinus tachycardia. ABDOMEN: Soft. Minimal tenderness in suprapubic region. Bowel sounds are present. EXTREMITIES: No cyanosis, clubbing, or edema. ASSISTANT COUNSEL: No gross deficits. Moves all extremities. SKIN: Slightly pale looking and cool to touch, otherwise unremarkable. No rashes noted. LABORATORY DATA: WBCs presently 6.1, H and H of 6.3 and 19.3, platelets 102 from 138. Liver function tests are normal. Blood cultures as reported Gram-positive cocci in chains, probably streptococci and urine culture on 02/01/2018 positive for more than 100,000 colonies of Gram-positive cocci. IMPRESSION: 1. Gram-positive bacteremia, source most likely genitourinary versus endomyometritis. 2. Severe symptomatic anemia. 3. Syncope probably secondary to blood loss. PLAN: Ponce cultures. Continue IV Zosyn 3.375 mg every 6 hourly for now, started on 02/01/2018. We will add IV vancomycin 1 gm every 24 hourly for Gram-positive coverage while awaiting cultures and identification. We will adjust antibiotics accordingly. Case discussed with Dr. Schmidt. We will follow closely with you and make any adjustments as needed. The patient probably is going to get one unit of packed red blood cells transfusion today as noted by power house control room operator, oncologist. Thank you very much for allowing me to participate in the care of your patient. We will follow along with you. Macy Barbour MD
[2018-02-03] MEDS: Ferric Sodium Gluconat Complex 62.5 mg/5 ml Vial IVPB SCH (11:38)
[2018-02-03] MEDS: Vancomycin 1 gm/NS 200 ml 1 GM/200 ML BAG IVPB SCH (14:18)
--- NOTE | 2018-02-03 21:10 | CP.PCM.PN ---
Subjective - Date & Time of Evaluation Date of Evaluation: 02/03/18 Time of Evaluation: 21:10 - Subjective Subjective: CHIEF COMPLAINTS TODAY : afebrile, VSS STATES FEELING BETTER. ROS. HEENT : N. Resp : No cough, wheezing ,pleuritic CP ,or hemoptysis Cardio : No anginal CP, PND, orthopnea, palpitation GI : LESS ABDOMINAL PAIN, NO n/v ,diarrhea or GI bleeding . AIRLINE ATTENDANT : No headache, vertigo, focal deficit. Musculoskel : No joint swelling , Derm : No rash Psych : Normal affect. Ext : No swelling ,calf pain PE. Pt. is alert awake in no distress. V.S As noted in the chart Head ,ear nose,throat and eyes : Normal. Neck : Supple with normal carotids. Lungs: Clear air entry. Heart : S1 & S2 normal with S4. No murmur. Abd : MILD TENDERNESS SUPRAPUBIC, with normal bowel sounds. Neuro : Moves all ext. with no localized deficit. Ext : No edema with intact pulses.Non tender calves Derm : No rashes or decubitus ulcer. LABS/RADIOLOGY: URINE CULTURE +VE STREPTOCOCCUS PYOGENES GROUP A. BLOOD CULTURES 2:2 SETS +VE STREPTOCOCCUS PYOGENES GROUP A. ASSESSMENT; STREP.PYOGENES GRP A - BACTEREMIA UROSEPSIS WITH STREP GROUP A. ANEMIA HYPERBILIRUBINEMIA S/P MEDICAL /PLAN : CONTACT PRECAUTIONS DC IV ZOSYN .CONTINUE iv VANCOMYCIN 1 G ONCE A DAY DAILY.02/02/18 FOLLOW-UP VANCO TROUGH LEVEL PRIOR TO THE THIRD DOSE. F/U LFTS REPEAT BLOOD CULTURES 2 SETS IN A.M. THROAT CULTURE CONTACT PRECAUTIONS. CASE DISCUSSED WITH PMD /AND OF THE PATIENT Objective - Vital Signs/Intake and Output Vital Signs (last 24 hours): Temp Pulse Resp BP Pulse Ox 97.8 F 89 20 107/71 97 02/03/18 15:15 02/03/18 15:15 02/03/18 15:15 02/03/18 15:15 02/03/18 17:13 Intake and Output: 02/03/18 02/04/18 18:59 06:59 Intake Total 1250 Balance 1250 - Medications Medications: Current Medications Acetaminophen (Tylenol 325mg Tab) 650 mg PO Q6 PRN PRN Reason: Fever >100.4 F Last Admin: 04/18/18 20:50 Dose: 650 mg Cyanocobalamin (Vitamin B12 1000 Mcg/Ml Inj) 1,000 mcg SC DAILY [facility] Last Admin: 02/03/18 11:37 Dose: 1,000 mcg Ferric Sodium Gluconate Complex (Ferrlecit) 125 mg IVPB DAILY [facility] Stop: 02/11/18 10:01 Last Admin: 02/03/18 11:38 Dose: 125 mg Folic Acid (Folic Acid) 1 mg PO DAILY [facility] Last Admin: 02/03/18 11:37 Dose: 1 mg Potassium Chloride 20 meq/ (Sodium Chloride) 1,010 mls @ 100 mls/hr IV .Q10H6M [facility] Last Admin: 02/03/18 13:00 Dose: Not Given Vancomycin/Sodium Chloride (Vancomycin 1 Gm/Ns 200 Ml) 1 gm in 200 mls @ 133 mls/hr IVPB Q24H [facility] PRN Reason: Protocol Stop: 02/07/18 14:16 Last Admin: 02/03/18 14:18 Dose: 133 mls/hr Ondansetron HCl (Zofran Inj) 4 mg IVP Q8 PRN PRN Reason: Nausea/Vomiting - Labs Labs: 02/03/18 06:41 02/03/18 06:41 PT 16.1 SECONDS (9.7-12.2) H 02/01/18 17:24 INR 1.4 02/01/18 17:24 APTT 29 SECONDS (21-34) 02/01/18 17:24
[2018-02-03] MEDS: Clindamycin 300 MG in Sodium Chloride 0.9% 50 ML IVPB SCH (23:27)
[2018-02-04] MEDS: Clindamycin 300 MG in Sodium Chloride 0.9% 50 ML IVPB SCH ×3 (06:07→22:21)
[2018-02-04 09:01] LABS: HEMOGLOBIN 10.7 g/dL (11.0-16.0); MEAN CELL VOLUME 70.3 fL (81.0-99.0); MEAN CORPUSCULAR HEMOGLOBIN 23.5 pg (27.0-31.0); MEAN CORPUSCULAR HGB CONC 33.4 g/dL (33.0-37.0); MEAN PLATELET VOLUME 11.2 fL (7.2-11.7); RBC 4.53 Mil/uL (3.80-5.20); RED CELL DISTRIBUTION WIDTH 22.2 % (11.5-14.5); WHITE BLOOD COUNT 6.7 K/uL (4.8-10.8)
[2018-02-04] MEDS: Ferric Sodium Gluconat Complex 62.5 mg/5 ml Vial IVPB SCH (09:53)
[2018-02-04] MEDS: Vancomycin 1 gm/NS 200 ml 1 GM/200 ML BAG IVPB SCH (17:37)
--- NOTE | 2018-02-04 20:05 | CP.PCM.PN ---
Subjective - Date & Time of Evaluation Date of Evaluation: 02/04/18 Time of Evaluation: 20:04 Objective - Vital Signs/Intake and Output Vital Signs (last 24 hours): Temp Pulse Resp BP Pulse Ox 97.4 F L 89 20 110/74 100 02/04/18 16:00 02/04/18 16:00 02/04/18 16:00 02/04/18 16:00 02/04/18 16:00 - Medications Medications: Current Medications Acetaminophen (Tylenol 325mg Tab) 650 mg PO Q6 PRN PRN Reason: Fever >100.4 F Last Admin: 02/02/18 20:50 Dose: 650 mg Cyanocobalamin (Vitamin B12 1000 Mcg/Ml Inj) 1,000 mcg SC DAILY [facility] Last Admin: 02/04/18 09:53 Dose: 1,000 mcg Ferric Sodium Gluconate Complex (Ferrlecit) 125 mg IVPB DAILY [facility] Stop: 02/11/18 10:01 Last Admin: 02/04/18 09:53 Dose: 125 mg Folic Acid (Folic Acid) 1 mg PO DAILY [facility] Last Admin: 02/04/18 09:54 Dose: 1 mg Potassium Chloride 20 meq/ (Sodium Chloride) 1,010 mls @ 100 mls/hr IV .Q10H6M [facility] Last Admin: 02/04/18 09:55 Dose: Not Given Clindamycin Phosphate 300 mg/ (Sodium Chloride) 52 mls @ 100 mls/hr IVPB Q8H [facility] PRN Reason: Protocol Last Admin: 02/04/18 14:30 Dose: 100 mls/hr Vancomycin/Sodium Chloride (Vancomycin 1 Gm/Ns 200 Ml) 1 gm in 200 mls @ 133.333 mls/hr IVPB Q12H [facility] PRN Reason: Protocol Stop: 02/09/18 18:31 Last Admin: 02/04/18 17:37 Dose: 133.333 mls/hr Ondansetron HCl (Zofran Inj) 4 mg IVP Q8 PRN PRN Reason: Nausea/Vomiting - Labs Labs: 02/04/18 08:45 02/03/18 06:41 PT 16.1 SECONDS (9.7-12.2) H 02/01/18 17:24 INR 1.4 02/01/18 17:24 APTT 29 SECONDS (21-34) 02/01/18 17:24
--- NOTE | 2018-02-04 20:05 | CP.PCM.PN ---
Subjective - Date & Time of Evaluation Date of Evaluation: 02/04/18 Time of Evaluation: 20:05 - Subjective Subjective: CHIEF COMPLAINTS TODAY : afebrile, VSS STATES FEELING BETTER. APPETITE IMPROVING DENIES N/VOMITING ROS. HEENT : N. Resp : No cough, wheezing ,pleuritic CP ,or hemoptysis Cardio : No anginal CP, PND, orthopnea, palpitation GI : LESS ABDOMINAL PAIN, NO n/v ,diarrhea or GI bleeding . 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 Musculoskel : No joint swelling , Derm : No rash Psych : Normal affect. Ext : No swelling ,calf pain PE. Pt. is alert awake in no distress. V.S As noted in the chart Head ,ear nose,throat and eyes : Normal. Neck : Supple with normal carotids. Lungs: Clear air entry. Heart : S1 & S2 normal with S4. No murmur. Abd : MILD TENDERNESS SUPRAPUBIC, with normal bowel sounds. Neuro : Moves all ext. with no localized deficit. Ext : No edema with intact pulses.Non tender calves Derm : No rashes or decubitus ulcer. LABS/RADIOLOGY: REVIEWED. VANC TROUGH -<5.8 URINE CULTURE +VE STREPTOCOCCUS PYOGENES GROUP A. BLOOD CULTURES 2:2 SETS +VE STREPTOCOCCUS PYOGENES GROUP A. ASSESSMENT; STREP.PYOGENES GRP A - BACTEREMIA UROSEPSIS WITH STREP GROUP A. ANEMIA HYPERBILIRUBINEMIA S/P MEDICAL /PLAN : CONTACT PRECAUTIONS ON IV CLINDAMYCIN 300MG IV Q 8HRLY 06/05/18 INCREASE iv VANCOMYCIN 1 G Q 12HOURLY .02/02/18 FOLLOW-UP VANCO TROUGH LEVEL PRIOR TO THE 4TH DOSE. F/U LFTS REPEAT BLOOD CULTURES 2 SETS -P CONTACT PRECAUTIONS. Objective - Vital Signs/Intake and Output Vital Signs (last 24 hours): Temp Pulse Resp BP Pulse Ox 97.4 F L 89 20 110/74 100 02/04/18 16:00 02/04/18 16:00 02/04/18 16:00 02/04/18 16:00 02/04/18 16:00 - Medications Medications: Current Medications Acetaminophen (Tylenol 325mg Tab) 650 mg PO Q6 PRN PRN Reason: Fever >100.4 F Last Admin: 02/02/18 20:50 Dose: 650 mg Cyanocobalamin (Vitamin B12 1000 Mcg/Ml Inj) 1,000 mcg SC DAILY COUNT INCLUDES [facility] Last Admin: 02/04/18 09:53 Dose: 1,000 mcg Ferric Sodium Gluconate Complex (Ferrlecit) 125 mg IVPB DAILY COUNT INCLUDES [facility] Stop: 02/11/18 10:01 Last Admin: 02/04/18 09:53 Dose: 125 mg Folic Acid (Folic Acid) 1 mg PO DAILY COUNT INCLUDES [facility] Last Admin: 02/04/18 09:54 Dose: 1 mg Potassium Chloride 20 meq/ (Sodium Chloride) 1,010 mls @ 100 mls/hr IV .Q10H6M COUNT INCLUDES THE [facility] Last Admin: 02/04/18 09:55 Dose: Not Given Clindamycin Phosphate 300 mg/ (Sodium Chloride) 52 mls @ 100 mls/hr IVPB Q8H COUNT INCLUDES THE [facility] PRN Reason: Protocol Last Admin: 02/04/18 14:30 Dose: 100 mls/hr Vancomycin/Sodium Chloride (Vancomycin 1 Gm/Ns 200 Ml) 1 gm in 200 mls @ 133.333 mls/hr IVPB Q12H COUNT INCLUDES THE [facility] PRN Reason: Protocol Stop: 02/09/18 18:31 Last Admin: 02/04/18 17:37 Dose: 133.333 mls/hr Ondansetron HCl (Zofran Inj) 4 mg IVP Q8 PRN PRN Reason: Nausea/Vomiting - Labs Labs: 02/04/18 08:45 02/03/18 06:41 PT 16.1 SECONDS (9.7-12.2) H 02/01/18 17:24 INR 1.4 02/01/18 17:24 APTT 29 SECONDS (21-34) 02/01/18 17:24
[2018-02-05] MEDS: Clindamycin 300 MG in Sodium Chloride 0.9% 50 ML IVPB SCH ×3 (06:08→22:07)
[2018-02-05] MEDS: Vancomycin 1 gm/NS 200 ml 1 GM/200 ML BAG IVPB SCH ×2 (06:42→17:38)
[2018-02-05] MEDS: Ferric Sodium Gluconat Complex 62.5 mg/5 ml Vial IVPB SCH (10:32)
--- NOTE | 2018-02-05 15:35 | CP.PCM.PN ---
Subjective - Date & Time of Evaluation Date of Evaluation: 02/05/18 Time of Evaluation: 15:00 - Subjective Subjective: pt was sen at bed side, no pain or vb. ,no fever, no vomiting. fels ok and soft,non tender ext no erdema.no calf ten blood culutre neg Objective - Vital Signs/Intake and Output Vital Signs (last 24 hours): Temp Pulse Resp BP Pulse Ox 98 F 80 20 118/80 100 02/05/18 08:00 02/05/18 08:00 02/05/18 08:00 02/05/18 08:00 02/05/18 14:35 Intake and Output: 02/05/18 02/05/18 06:59 18:59 Intake Total 1730 Balance 1730 - Medications Medications: Current Medications Acetaminophen (Tylenol 325mg Tab) 650 mg PO Q6 PRN PRN Reason: Fever >100.4 F Last Admin: 02/02/18 20:50 Dose: 650 mg Cyanocobalamin (Vitamin B12 1000 Mcg/Ml Inj) 1,000 mcg SC DAILY [facility] Last Admin: 02/05/18 10:31 Dose: 1,000 mcg Ferric Sodium Gluconate Complex (Ferrlecit) 125 mg IVPB DAILY [facility] Stop: 02/11/18 10:01 Last Admin: 02/05/18 10:32 Dose: 125 mg Folic Acid (Folic Acid) 1 mg PO DAILY [facility] Last Admin: 02/05/18 10:31 Dose: 1 mg Clindamycin Phosphate 300 mg/ (Sodium Chloride) 52 mls @ 100 mls/hr IVPB Q8H NANI PRN Reason: Protocol Last Admin: 02/05/18 14:51 Dose: 100 mls/hr Vancomycin/Sodium Chloride (Vancomycin 1 Gm/Ns 200 Ml) 1 gm in 200 mls @ 133.333 mls/hr IVPB Q12H NANI PRN Reason: Protocol Stop: 02/09/18 18:31 Last Admin: 02/05/18 06:42 Dose: 133.333 mls/hr Ondansetron HCl (Zofran Inj) 4 mg IVP Q8 PRN PRN Reason: Nausea/Vomiting - Labs Labs: 02/04/18 08:45 02/03/18 06:41 PT 16.1 SECONDS (9.7-12.2) H 02/01/18 17:24 INR 1.4 02/01/18 17:24 APTT 29 SECONDS (21-34) 02/01/18 17:24 Assessment and Plan - Assessment and Plan (Free Text) Assessment: 27 yr with endometritis/acute blood loss anemia s/o 2 unit prnc Plan: cont iv abx cont ID consult reg deit possible dc once cultur
--- NOTE | 2018-02-05 23:55 | CP.PCM.PN ---
Subjective - Date & Time of Evaluation Date of Evaluation: 02/05/18 Time of Evaluation: 23:55 - Subjective Subjective: CHIEF COMPLAINTS TODAY : afebrile, VSS STATES FEELING BETTER. DENIES N/VOMITING. DENIES ABDONINAL PAIN ROS. HEENT : N. Resp : No cough, wheezing ,pleuritic CP ,or hemoptysis Cardio : No anginal CP, PND, orthopnea, palpitation GI : LESS ABDOMINAL PAIN, NO n/v ,diarrhea or GI bleeding . 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 Musculoskel : No joint swelling , Derm : No rash Psych : Normal affect. Ext : No swelling ,calf pain PE. Pt. is alert awake in no distress. V.S As noted in the chart Head ,ear nose,throat and eyes : Normal. Neck : Supple with normal carotids. Lungs: Clear air entry. Heart : S1 & S2 normal with S4. No murmur. Abd : MILD TENDERNESS SUPRAPUBIC, with normal bowel sounds. Neuro : Moves all ext. with no localized deficit. Ext : No edema with intact pulses.Non tender calves Derm : No rashes or decubitus ulcer. LABS/RADIOLOGY: REVIEWED. VANC TROUGH -<5.8-->> 10.1 URINE CULTURE +VE STREPTOCOCCUS PYOGENES GROUP A. BLOOD CULTURES 2:2 SETS +VE STREPTOCOCCUS PYOGENES GROUP A. REPEAT BLOOD CULTURES 2 SETS -VE X 24HOURS ASSESSMENT; STREP.PYOGENES GRP A - BACTEREMIA UROSEPSIS WITH STREP GROUP A. ANEMIA HYPERBILIRUBINEMIA S/P MEDICAL /PLAN : CONTACT PRECAUTIONS ON IV CLINDAMYCIN 300MG IV Q 8HRLY 02/03/18 INCREASE iv VANCOMYCIN 1 G Q 12HOURLY .02/04/18 F/U LFTS CONTACT PRECAUTIONS. Objective - Vital Signs/Intake and Output Vital Signs (last 24 hours): Temp Pulse Resp BP Pulse Ox 98.3 F 82 20 117/80 100 02/05/18 16:00 02/05/18 16:00 02/05/18 16:00 02/05/18 16:00 02/05/18 16:00 Intake and Output: 02/05/18 02/06/18 18:59 06:59 Intake Total 550 300 Balance 550 300 - Medications Medications: Current Medications Acetaminophen (Tylenol 325mg Tab) 650 mg PO Q6 PRN PRN Reason: Fever >100.4 F Last Admin: 02/02/18 20:50 Dose: 650 mg Cyanocobalamin (Vitamin B12 1000 Mcg/Ml Inj) 1,000 mcg SC DAILY [facility] Last Admin: 02/05/18 10:31 Dose: 1,000 mcg Ferric Sodium Gluconate Complex (Ferrlecit) 125 mg IVPB DAILY [facility] Stop: 02/11/18 10:01 Last Admin: 02/05/18 10:32 Dose: 125 mg Folic Acid (Folic Acid) 1 mg PO DAILY [facility] Last Admin: 02/05/18 10:31 Dose: 1 mg Clindamycin Phosphate 300 mg/ (Sodium Chloride) 52 mls @ 100 mls/hr IVPB Q8H NANI PRN Reason: Protocol Last Admin: 02/05/18 22:07 Dose: 100 mls/hr Vancomycin/Sodium Chloride (Vancomycin 1 Gm/Ns 200 Ml) 1 gm in 200 mls @ 133.333 mls/hr IVPB Q12H NANI PRN Reason: Protocol Stop: 02/09/18 18:31 Last Admin: 02/05/18 17:38 Dose: 133.333 mls/hr Ondansetron HCl (Zofran Inj) 4 mg IVP Q8 PRN PRN Reason: Nausea/Vomiting - Labs Labs: 02/04/18 08:45 02/03/18 06:41 PT 16.1 SECONDS (9.7-12.2) H 02/01/18 17:24 INR 1.4 02/01/18 17:24 APTT 29 SECONDS (21-34) 02/01/18 17:24
[2018-02-06] MEDS: Vancomycin 1 gm/NS 200 ml 1 GM/200 ML BAG IVPB SCH (05:47)
[2018-02-06] MEDS: Clindamycin 300 MG in Sodium Chloride 0.9% 50 ML IVPB SCH ×2 (06:06→15:00)
[2018-02-06] MEDS: Ferric Sodium Gluconat Complex 62.5 mg/5 ml Vial IVPB SCH (10:55)
--- NOTE | 2018-02-06 12:13 | CP.PCM.PN ---
Subjective - Date & Time of Evaluation Date of Evaluation: 02/06/18 Time of Evaluation: 12:13 - Subjective Subjective: CHIEF COMPLAINTS TODAY : afebrile, VSS STATES FEELING BETTER. APPETITE IMPROVED DENIES ABDONINAL PAIN ROS. HEENT : N. Resp : No cough, wheezing ,pleuritic CP ,or hemoptysis Cardio : No anginal CP, PND, orthopnea, palpitation GI : NO ABDOMINAL PAIN, NO n/v ,diarrhea or GI bleeding . 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 Musculoskel : No joint swelling , Derm : No rash Psych : Normal affect. Ext : No swelling ,calf pain PE. Pt. is alert awake in no distress. V.S As noted in the chart Head ,ear nose,throat and eyes : Normal. Neck : Supple with normal carotids. Lungs: Clear air entry. Heart : S1 & S2 normal with S4. No murmur. Abd : SOFT NON TENDER, with normal bowel sounds. Neuro : Moves all ext. with no localized deficit. Ext : No edema with intact pulses.Non tender calves Derm : No rashes or decubitus ulcer. LABS/RADIOLOGY: REVIEWED. VANC TROUGH -<5.8-->> 10.1 URINE CULTURE +VE STREPTOCOCCUS PYOGENES GROUP A. BLOOD CULTURES 2:2 SETS +VE STREPTOCOCCUS PYOGENES GROUP A. REPEAT BLOOD CULTURES 2 SETS -VE X 48 HOURS THROAT CULTURE -VE ASSESSMENT; STREP.PYOGENES GRP A - BACTEREMIA UROSEPSIS WITH STREP GROUP A. ANEMIA HYPERBILIRUBINEMIA S/P MEDICAL /PLAN : CONTACT PRECAUTIONS ON IV CLINDAMYCIN 300MG IV Q 8HRLY 02/03/18 INCREASE iv VANCOMYCIN 1 G Q 12HOURLY .02/04/18 F/U LFTS CONTACT PRECAUTIONS. Objective - Vital Signs/Intake and Output Vital Signs (last 24 hours): Temp Pulse Resp BP Pulse Ox 97.4 F L 88 20 108/69 99 02/06/18 07:45 02/06/18 07:45 02/06/18 07:45 02/06/18 07:45 02/06/18 07:45 Intake and Output: 02/06/18 02/06/18 06:59 18:59 Intake Total 730 Balance 730 - Medications Medications: Current Medications Acetaminophen (Tylenol 325mg Tab) 650 mg PO Q6 PRN PRN Reason: Fever >100.4 F Last Admin: 02/02/18 20:50 Dose: 650 mg Cyanocobalamin (Vitamin B12 1000 Mcg/Ml Inj) 1,000 mcg SC DAILY [facility] Last Admin: 02/06/18 10:56 Dose: 1,000 mcg Ferric Sodium Gluconate Complex (Ferrlecit) 125 mg IVPB DAILY [facility] Stop: 02/11/18 10:01 Last Admin: 02/06/18 10:55 Dose: 125 mg Folic Acid (Folic Acid) 1 mg PO DAILY [facility] Last Admin: 02/06/18 10:56 Dose: 1 mg Clindamycin Phosphate 300 mg/ (Sodium Chloride) 52 mls @ 100 mls/hr IVPB Q8H NANI PRN Reason: Protocol Last Admin: 02/06/18 06:06 Dose: 100 mls/hr Vancomycin/Sodium Chloride (Vancomycin 1 Gm/Ns 200 Ml) 1 gm in 200 mls @ 133.333 mls/hr IVPB Q12H NANI PRN Reason: Protocol Stop: 02/09/18 18:31 Last Admin: 02/06/18 05:47 Dose: 133.333 mls/hr Ondansetron HCl (Zofran Inj) 4 mg IVP Q8 PRN PRN Reason: Nausea/Vomiting - Labs Labs: 02/04/18 08:45 02/03/18 06:41 PT 16.1 SECONDS (9.7-12.2) H 02/01/18 17:24 INR 1.4 02/01/18 17:24 APTT 29 SECONDS (21-34) 02/01/18 17:24
[2018-02-06 14:07] LABS: ALBUMIN 3.2 g/dL (3.5-5.0); ALT/SGPT 67 U/L (9-52); AST/SGOT 56 U/L (14-36); BILIRUBIN,DIRECT 0.4 mg/dL (0.0-0.4); BLOOD UREA NITROGEN 3 mg/dL (7-17); GFR AFRICAN-AMERICAN > 60; GFR NON-AFRICAN AMERICAN > 60
[2018-02-06 16:21] VITALS: BP 113/77; PULSE 91; TEMP 98.2; O2SAT 100
--- NOTE | 2018-02-06 17:18 | CP.PCM.PN ---
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 no pain or fever, min bleeding, no vomiting cleared by ID For discharge and soft, non tender ext no edema,no heaven ten Objective - Vital Signs/Intake and Output Vital Signs (last 24 hours): Temp Pulse Resp BP Pulse Ox 98.2 F 91 H 20 113/77 100 02/06/18 16:00 02/06/18 16:00 02/06/18 16:00 02/06/18 16:00 02/06/18 16:00 Intake and Output: 02/06/18 02/06/18 06:59 18:59 Intake Total 730 530 Balance 730 530 - Medications Medications: Current Medications Acetaminophen (Tylenol 325mg Tab) 650 mg PO Q6 PRN PRN Reason: Fever >100.4 F Last Admin: 02/02/18 20:50 Dose: 650 mg Cyanocobalamin (Vitamin B12 1000 Mcg/Ml Inj) 1,000 mcg SC DAILY [facility] Last Admin: 02/06/18 10:56 Dose: 1,000 mcg Ferric Sodium Gluconate Complex (Ferrlecit) 125 mg IVPB DAILY [facility] Stop: 02/11/18 10:01 Last Admin: 02/06/18 10:55 Dose: 125 mg Folic Acid (Folic Acid) 1 mg PO DAILY [facility] Last Admin: 02/06/18 10:56 Dose: 1 mg Clindamycin Phosphate 300 mg/ (Sodium Chloride) 52 mls @ 100 mls/hr IVPB Q8H NANI PRN Reason: Protocol Last Admin: 02/06/18 15:00 Dose: 100 mls/hr Vancomycin/Sodium Chloride (Vancomycin 1 Gm/Ns 200 Ml) 1 gm in 200 mls @ 133.333 mls/hr IVPB Q12H NANI PRN Reason: Protocol Stop: 02/09/18 18:31 Last Admin: 02/06/18 05:47 Dose: 133.333 mls/hr Ondansetron HCl (Zofran Inj) 4 mg IVP Q8 PRN PRN Reason: Nausea/Vomiting - Labs Labs: 02/04/18 08:45 02/06/18 13:31 PT 16.1 SECONDS (9.7-12.2) H 04/17/18 17:24 INR 1.4 02/01/18 17:24 APTT 29 SECONDS (21-34) 02/01/18 17:24 Assessment and Plan - Assessment and Plan (Free Text) Assessment: 27 yr endometritis/grou[ a strep/acute blod loss transfusio Plan: dc home augmenin no sex motrin prn f/u pmd in 5day
--- NOTE | 2018-02-06 17:20 | CP.PCM.DIS ---
Provider - Provider Date of Admission: 02/01/18 19:01 Attending physician: Rd Schmidt MD Time Spent in preparation of Discharge (in minutes): 20 Diagnosis - Discharge Diagnosis (1) Acute blood loss anemia Status: Acute (2) Endometritis Status: Acute (3) Group A streptococcal infection Status: Acute Hospital Course - Lab Results Lab Results: Micro Results 02/04/18 10:30 Blood-Venous Blood Culture - Preliminary NO GROWTH AFTER 48 HOURS 02/04/18 04:00 Blood-Venous Blood Culture - Preliminary NO GROWTH AFTER 48 HOURS 02/02/18 01:10 Blood Transfusion Bag - Final 02/02/18 01:10 Blood Transfusion Bag - Preliminary NO GROWTH AFTER 4 DAYS 02/03/18 16:31 Throat Group A Strep Throat Culture - Final NO BETA STREP GROUP A ISOLATED. 02/01/18 17:04 Blood-Venous Blood Culture - Final Streptococcus Pyogenes Grp A 02/01/18 17:04 Blood-Venous Gram Stain - Final 02/01/18 17:30 Blood-Venous S.aureus & Coag-Neg Staph PNA FISH - Final 02/01/18 17:30 Blood-Venous Blood Culture - Final Streptococcus Pyogenes Grp A 02/01/18 17:30 Blood-Venous Gram Stain - Final 02/01/18 Unknown Urine Urine Culture - Final Streptococcus Pyogenes Grp A Most Recent Lab Values WBC 6.7 K/uL (4.8-10.8) 02/04/18 08:45 RBC 4.53 Mil/uL (3.80-5.20) 02/04/18 08:45 Hgb 10.7 g/dL (11.0-16.0) L 02/04/18 08:45 Hct 31.9 % (34.0-47.0) L 02/04/18 08:45 MCV 70.3 fL (81.0-99.0) L 02/04/18 08:45 MCH 23.5 pg (27.0-31.0) L 02/04/18 08:45 MCHC 33.4 g/dL (33.0-37.0) 02/04/18 08:45 RDW 22.2 % (11.5-14.5) H 02/04/18 08:45 Plt Count 161 K/uL (130-400) 02/04/18 08:45 MPV 11.2 fL (7.2-11.7) 02/04/18 08:45 Neut % (Auto) 74.1 % (50.0-75.0) 02/03/18 06:41 Lymph % (Auto) 12.7 % (20.0-40.0) L 02/03/18 06:41 Stewart % (Auto) 11.3 % (0.0-10.0) H 02/03/18 06:41 Eos % (Auto) 1.5 % (0.0-4.0) 02/03/18 06:41 Baso % (Auto) 0.4 % (0.0-2.0) 02/03/18 06:41 Neut # (Auto) 4.1 K/uL (1.8-7.0) 02/03/18 06:41 Lymph # (Auto) 0.7 K/uL (1.0-4.3) L 02/03/18 06:41 Stewart # (Auto) 0.6 K/uL (0.0-0.8) 02/03/18 06:41 Eos # (Auto) 0.1 K/uL (0.0-0.7) 02/03/18 06:41 Baso # (Auto) 0.0 K/uL (0.0-0.2) 02/03/18 06:41 Neutrophils % (Manual) 81 % (50-75) H 02/02/18 06:40 Band Neutrophils % 5 % (0-2) H 02/02/18 06:40 Lymphocytes % (Manual) 10 % (20-40) L 02/02/18 06:40 Monocytes % (Manual) 4 % (0-10) 02/02/18 06:40 Differential Comment 02/04/18 08:45 Platelet Estimate Slightly decreased (NORMAL) L 02/02/18 06:40 Plt Clumps, EDTA Present 02/02/18 06:40 Large Platelets Present 02/02/18 06:40 Hypochromasia (manual) Moderate 02/02/18 06:40 Poikilocytosis (manual Slight 02/02/18 06:40 Anisocytosis (manual) Slight 02/02/18 06:40 Microcytosis (manual) Moderate 02/01/18 17:24 Macrocytosis (manual) Moderate 02/02/18 06:40 Tear Drop Cells Slight 02/02/18 06:40 Ovalocytes Slight 02/02/18 06:40 Retic Count 2.1 % (0.5-1.5) H 02/01/18 19:17 PT 16.1 SECONDS (9.7-12.2) H 02/01/18 17:24 INR 1.4 02/01/18 17:24 APTT 29 SECONDS (21-34) 02/01/18 17:24 Fibrinogen 396 mg/dL (200-400) 02/01/18 19:17 Sodium 136 mmol/L (132-148) 02/06/18 13:31 Potassium 3.8 mmol/L (3.6-5.2) 02/06/18 13:31 Chloride 99 mmol/L (98-107) 02/06/18 13:31 Carbon Dioxide 25 mmol/L (22-30) 02/06/18 13:31 Anion Gap 17 (10-20) 02/06/18 13:31 BUN 3 mg/dL (7-17) L 02/06/18 13:31 Creatinine 0.6 mg/dL (0.7-1.2) L 02/06/18 13:31 Est GFR ( Amer) > 60 02/06/18 13:31 Est GFR (Non-Af Amer) > 60 02/06/18 13:31 Random Glucose 132 mg/dL (65-105) H 02/06/18 13:31 Calcium 9.0 mg/dl (8.6-10.4) 02/06/18 13:31 Iron < 10 ug/dL (37-170) L 02/01/18 19:17 TIBC 353 ug/dL (250-450) 02/01/18 19:17 % Saturation 2.8 (20-55) L 02/01/18 19:17 Ferritin 13.7 ng/mL 02/01/18 19:17 Total Bilirubin 0.6 mg/dL (0.2-1.3) 02/06/18 13:31 Direct Bilirubin 0.4 mg/dL (0.0-0.4) 02/06/18 13:31 AST 56 U/L (14-36) H D 02/06/18 13:31 ALT 67 U/L (9-52) H D 02/06/18 13:31 Alkaline Phosphatase 71 U/L (38-126) 02/06/18 13:31 Lactate Dehydrogenase 369 U/L (313-618) 02/01/18 19:17 Total Protein 6.4 g/dL (6.3-8.3) 02/06/18 13:31 Albumin 3.2 g/dL (3.5-5.0) L D 02/06/18 13:31 Globulin 3.2 gm/dL (2.2-3.9) 02/06/18 13:31 Albumin/Globulin Ratio 1.0 (1.0-2.1) 02/06/18 13:31 Vitamin B12 213 pg/mL (239-931) L 02/01/18 19:17 Beta HCG, Quant 80660.00 mIU/ML 02/01/18 17:24 Urine Color Red (YELLOW) 02/02/18 00:02 Urine Clarity Hazy (Clear) 02/02/18 00:02 Urine pH 6.0 (5.0-8.0) 02/02/18 00:02 Ur Specific [place] 1.008 (1.003-1.030) 02/02/18 00:02 Urine Protein 1+ mg/dL (NEGATIVE) H 02/02/18 00:02 Urine Glucose (UA) Normal mg/dL (Normal) 02/02/18 00:02 Urine Ketones Negative mg/dL (NEGATIVE) 02/02/18 00:02 Urine Blood 3+ (NEGATIVE) H 02/02/18 00:02 Urine Nitrate Negative (NEGATIVE) 02/02/18 00:02 Urine Bilirubin Negative (NEGATIVE) 02/02/18 00:02 Urine Urobilinogen Normal mg/dL (0.2-1.0) 02/02/18 00:02 Ur Leukocyte Esterase 3+ Joana/uL (Negative) H 02/02/18 00:02 Urine WBC (Auto) 418 /hpf (0-5) H 02/02/18 00:02 Urine RBC (Auto) 141 /hpf (0-3) H 02/02/18 00:02 Ur Squamous Epith Cells 1 /hpf (0-5) 02/02/18 00:02 Urine Bacteria Rare (<OCC) 02/02/18 00:02 Urine HCG, Qual Positive (NEGATIVE) 02/01/18 17:10 Vancomycin Trough 10.9 ug/mL (5.0-10.0) H 02/05/18 16:20 Blood Type O POSITIVE 02/01/18 17:24 Blood Type Confirm O POSITIVE 02/01/18 17:24 Antibody Screen Negative 02/01/18 17:24 Tx React Basic Work-up Compatible (COMPATIBLE) 02/02/18 00:19 Clerical Work Check No discrepancy 02/02/18 00:19 Pre-Trans Blood Type O POSITIVE 02/02/18 00:19 Pre-Trans Vis Hemolysis No hemolysis 02/02/18 00:19 Pre-Tx Ab Screen (Gel) Negative 02/02/18 00:19 Post-Trans Blood Type O POSITIVE 02/02/18 00:19 Post-Tx Visible Hemolys No hemolysis 02/02/18 00:19 Post-Tx Ab Screen (Gel) Negative 02/02/18 00:19 Post-Trans PB Poly Negative (NEGATIVE) 02/02/18 00:19 Pathologist Comment BBK 02/02/18 00:19 Discharge Exam - Head Exam Head Exam: ATRAUMATIC (Pale sclerae), NORMAL INSPECTION, NORMOCEPHALIC Discharge Plan - Follow Up Plan Condition: GOOD Disposition: HOME/ ROUTINE
== END 2018-02-06 18:25 | disposition home or self-care (01) | DRG 779 ==
LOC: C.ER 16:32 → C.9E 19:01 → OBSVTOIN 19:01 → C.3T 19:01
PROVIDERS: ADMIT Obstetrics & Gynecology; ATTEND Obstetrics & Gynecology
DX: O04.6 Delayed or excessive hemorrhage following (induced) termination of pregnancy (principal); R78.81 Bacteremia; D62 Acute posthemorrhagic anemia; E87.1 Hypo-osmolality and hyponatremia; O04.5 Genital tract and pelvic infection following (induced) termination of pregnancy; B95.0 Streptococcus, group A, as the cause of diseases classified elsewhere; B96.89 Other specified bacterial agents as the cause of diseases classified elsewhere; D69.6 Thrombocytopenia, unspecified; E87.6 Hypokalemia; E88.9 Metabolic disorder, unspecified; O04.8 (Induced) termination of pregnancy with other and unspecified complications; O03.5 Genital tract and pelvic infection following complete or unspecified spontaneous abortion